=== PATIENT | male | born 1980 | race Caucasian/White ===

== ENCOUNTER 2017-08-27 15:06 | Emergency (ER) | payer OTHER ==
[2017-08-27] MEDS ORDERED: NS 500 ML IV ONE (15:13)
--- NOTE | 2017-08-27 15:22 | CPEKG ---
Heart Rate: 96 RR Interval: 625 P-R Interval: 128 QRSD Interval: 110 QT Interval: 340 QTC Interval: 430 P [place]: 82 QRS [place]: 85 T Wave [place]: 62 EKG Severity - ABNORMAL ECG - EKG Impression: SINUS RHYTHM EKG Impression: INCOMPLETE RIGHT BUNDLE BRANCH BLOCK Electronically Signed By: Kate Mcdonough 27-Aug-2017 22:12:47
[2017-08-27] MEDS ORDERED: ASPIRIN 81 MG CHEWABLE TAB PO ONE (15:24)
[2017-08-27] MEDS ORDERED: ASPIRIN 81 MG CHEWABLE TAB ONE (15:25)
--- NOTE | 2017-08-27 15:28 | EDPHY ---
H & P Time Seen by Provider: 08/27/17 15:12 HPI/ROS: HPI Chest pain. 36-year-old male by private vehicle with his girlfriend. This patient complains of on and off chest pain which she describes as a mid substernal tightness and aching sensation. He reports he has had this for about the last day and a half. He reports that it is a little bit worse when taking a deep breath. He denies any shortness of breath. He states that the pain also seems worse when he is exerting himself. He has no cardiac risk factors, specifically no history of diabetes, hypertension, hyperlipidemia. He is not obese. Nonsmoker. Denies IV drugs or street drugs. No family history of coronary artery disease. ROS: Constitutional: No fever, no chills. No weakness. Eyes: No discharge. No changes in vision. ENT: No sore throat. No nasal congestion or rhinorrhea. Respiratory: No cough. No shortness of breath. Cardiac: As above, no palpitations. Gastrointestinal: No abdominal pain, no vomiting, no diarrhea. Genitourinary: No hematuria. No dysuria or increased frequency with urination. Musculoskeletal: No back pain. No neck pain. No myalgias or arthralgias. Skin: No rashes. Neurological: No headache. No focal weakness or altered sensation. Past medical history: He denies any significant past medical history. He takes no prescription medications. Social history: Nonsmoker. Drinks alcohol occasionally. Here with his girlfriend. Physical Exam: General Appearance: Alert, no distress. This patient is responding to questions appropriately and in full sentences. This patient appears well- hydrated and well-nourished. Eyes: Pupils equal and round no pallor or injection. No lid edema, erythema or injection. Respiratory: There are no retractions, lungs are clear to auscultation with good air movement bilaterally. Cardiovascular: Regular rate and rhythm. No murmur. Gastrointestinal: Abdomen is soft and nontender, no masses, bowel sounds normal. No focal tenderness at McBurney's point. No Ly sign. Neurological: Motor sensory function is grossly intact. Cranial nerves are normal. Gait is normal. Skin: Warm and dry, no rashes. Musculoskeletal: Neck is supple and nontender. Extremities are symmetrical. All joints range without pain or impingement. Psychiatric: No agitation. No depression. Database: EKG: EKG time is 3:20 p.m.; EKG shows a narrow complex normal sinus rhythm with a ventricular rate of 96. Incomplete right bundle branch block noted. The TN, QRS , QT intervals are within normal limits. There are no ST-T wave changes indicative of ischemic or injury pattern. No evidence of right heart strain. Interpreted by me. Imaging: Chest x-ray AP portable; the cardiac mediastinal silhouette is unremarkable. No evidence of infiltrate or pneumothorax. No acute cardiopulmonary disease process noted. Interpreted by me. Procedures: Emergency department course: IV was placed. He was placed on a quality assurance monitor body. EKG obtained and reviewed by myself. He was given 324 mg of chewed aspirin. He reports only a very low level of chest discomfort at this time. Vital signs reviewed and are normal. Heart score calculated at 2, low risk. 4:35 p.m., patient re-evaluated. Resting comfortably at this time. Vital signs reviewed and are normal. He denies any chest pain or chest discomfort. Results of his diagnostic workup in the emergency department were discussed with him. Heart score interpretation of this was discussed with him and his significant other with their full understanding. The patient elects to go home. He does not want to stay for a repeat three hour troponin or be admitted for observation and further testing. Paperwork reflecting this signed by the patient and myself. Incorporating shared decision making, he elects to go home. He will follow up with his primary care physician or our cardiology group next week for re-evaluation. The patient competently engages in shared decision making. They demonstrate capacitance to make decisions. Return to emergency department precautions were thoroughly reviewed with him. All of his questions were answered. He was discharged in good condition. Differential Diagnosis: The differential diagnosis on this patient includes but is not limited to noncardiac etiology of chest pain, soft vaginal spasm, costal chondritis. Acute coronary syndrome, myocardial infarction, myocarditis, pericarditis, aortic dissection, pulmonary embolism, pneumonia, pneumothorax unlikely. This represents a partial list of diagnoses considered. These considerations are based on history, physical exam, past history, reassessment and diagnostic testing. Smoking Status: Never smoked Constitutional: Initial Vital Signs Temperature (C) 36.5 C 08/27/17 15:13 Heart Rate 92 08/27/17 15:13 Respiratory Rate 16 08/27/17 15:13 Blood Pressure 121/82 H 08/27/17 15:13 O2 Sat (%) 94 08/27/17 15:13 O2 Delivery Mode Room Air Allergies/Adverse Reactions: No Known Allergies Allergy (Unverified 08/27/17 15:13) Home Medications: Medication Instructions Recorded NK [No Known Home Meds] 08/27/17 Medical Decision Making - Data Points Laboratory Results: Laboratory Results 08/27/17 15:21 08/27/17 15:21 Medications Given: Discontinued Medications Aspirin (Aspirin) 324 mg PO EDNOW ONE Stop: 08/27/17 15:25 Last Admin: 08/27/17 15:28 Dose: 324 mg Sodium Chloride (Ns) 500 mls @ 1,000 mls/hr IV EDNOW ONE PRN Reason: Protocol Stop: 08/27/17 15:42 Last Admin: 08/27/17 15:30 Dose: 500 mls Departure - Departure Disposition: Home, Routine, Self-Care Clinical Impression: Chest pain Condition: Good Instructions: Chest Pain (ED), Noncardiac Chest Pain (ED) Additional Instructions: Read and follow provided instructions. Follow-up with your primary care physician or with our cardiology group this coming week for re-evaluation as discussed. Avoid strenuous activity until you have been cleared by her primary care physician or promotion producer. Return to the emergency department for worsening or changing chest pain, shortness of breath or other serious concerns. Referrals: Greta Moran PA [Primary Care Provider] - As per Instructions Vincent Allison MD [Medical Doctor] - As per Instructions
[2017-08-27 15:29] LABS: PLATELET COUNT 225 10^3/uL (150-400)
[2017-08-27 16:59] VITALS: BP 100/66
== END 2017-08-27 16:59 | disposition home or self-care (01) ==
DX: R07.9 Chest pain, unspecified (principal); E86.9 Volume depletion, unspecified